=== PATIENT | female | born 1970 | race Caucasian/White ===

== ENCOUNTER → 2022-04-18 11:53 | Outpatient (CLI) | payer OTHER, MEDICAID, SELFPAY ==
--- NOTE | 2022-04-18 | DI.US.S_ITS ---
ULTRASOUND OF LEFT BREAST: 04/18/2022 CLINICAL: Palpable left breast lump. Comparison is made to exams dated: 04/18/2022 mammogram - [facility] and 12/07/2017 mammogram - outside facility. Color flow and real-time ultrasound of the left breast were performed. Castro scale images of the real-time examination were reviewed. There is a 4.1 cm x 2.1 cm x 3.5 cm irregular mass in the left breast at 1 o'clock middle depth 5 cm from the nipple. This irregular mass is hypoechoic with an echogenic boundary. This correlates as palpated, with mammography findings, and area of clinical concern. Color flow imaging demonstrates that there is vascularity present. There also is an oval lymph node with mild eccentric cortical thickening in the left axilla. This oval lymph node is hypoechoic with fatty hilum. IMPRESSION: HIGHLY SUGGESTIVE OF MALIGNANCY The 4.1 cm x 2.1 cm x 3.5 cm irregular mass in the left breast at 1 o'clock middle depth is highly suggestive of malignancy. An ultrasound guided biopsy is recommended. The oval lymph node with eccentric cortical thickening in the left axilla is suspicious of malignancy. An ultrasound guided biopsy is recommended. Findings and recommendations were discussed with the patient by Dr. Lynn during today's examination. This exam was interpreted at Station ID: [id number]. Electronically Signed By: Jose Soto M.D. aty/:04/18/2022 13:52:50 letter sent: Biopsy Required Ultrasound BI-RADS: 5 Highly suggestive of malignancy
--- NOTE | 2022-04-18 | DI.MG.S_ITS ---
BILATERAL DIGITAL DIAGNOSTIC MAMMOGRAM 3D/2D: 04/18/2022 CLINICAL: Palpable left breast lump. Due for routine. Comparison is made to exam dated: 12/07/2017 mammogram - outside facility. The tissue of both breasts is heterogeneously dense. This may lower the sensitivity of mammography. There is a new 2.4 cm x 4.2 cm irregular high density mass with an obscured margin in the left breast at 1 o'clock middle depth. This correlates as palpated and with area of clinical concern. There is architectural distortion associated with the mass. No other significant masses, calcifications, or other findings are seen in either breast. IMPRESSION: INCOMPLETE: NEEDS ADDITIONAL IMAGING EVALUATION The new 2.4 cm x 4.2 cm irregular high density mass in the left breast is indeterminate. An ultrasound is recommended for further evaluation and is scheduled to immediately follow this examination. This exam was interpreted at Station ID: [id number]. NOTE: For mammograms, a report in lay terms will be sent to the patient. Approximately 15% of breast malignancies will not be visualized mammographically. In the management of a palpable breast mass, a negative mammogram must not discourage biopsy of a clinically suspicious lesion. Electronically Signed By: Jose Soto M.D. aty/:04/18/2022 12:33:35 ACR BI-RADS Category 0: Incomplete [id number]
== END ==
PROVIDERS: Referring Provider Physician Assistant; Visit Provider Physician Assistant
DX: N63.21 Unspecified lump in the left breast, upper outer quadrant (principal); R92.8 Other abnormal and inconclusive findings on diagnostic imaging of breast
CPT/HCPCS: 76642; 77066; G0279

== ENCOUNTER → 2024-04-13 15:01 | Outpatient (CLI) | payer OTHER, MEDICAID, SELFPAY ==
--- NOTE | 2024-04-13 15:08 | DI.NM.S_ITS ---
PROCEDURE: NM HIDA WITH CCK PHARMACEUTICAL: 5.1 mCi Tc-99m mebrofenin IV; 2 mcg CCK IV. INDICATIONS: ABD PAIN TECHNIQUE: Following intravenous administration of Tc-99m mebrofenin, sequential anterior abdominal images were obtained. To evaluate the contractile response of the gallbladder in response to Cholecystokinin (CCK), sincalide (0.02 ?g/kg) was administered by slow intravenous infusion approximately 60 minutes after the administration of the radiopharmaceutical. Sequential imaging was continued for 30 minutes after the start of CCK infusion. Gallbladder ejection fraction was calculated. COMPARISON: None. FINDINGS: Biliary scan: There is normal tracer uptake and excretion by the liver. There is normal visualization of the intrahepatic ducts, common bile duct, and gallbladder. There is normal tracer transit into the duodenum. CCK stimulation: There is normal contractile response of the gallbladder to CCK infusion. The calculated gallbladder ejection fraction is 93% ; normal values are above 35%. IMPRESSION: 1. Normal filling of gallbladder. No evidence for acute cholecystitis. 2. Normal contractile response of gallbladder to CCK stimulation. Dictated by: Kenrick Gonzalez M.D. on 04/14/2024 at 8:53 Approved by: Kenrick Gonzalez M.D. on 04/14/2024 at 8:55
== END ==
PROVIDERS: PCP Nurse Practitioner; Referring Provider Surgery; Visit Provider Surgery
DX: R10.9 Unspecified abdominal pain (principal)
CPT/HCPCS: 78227; A9537; J2805

== ENCOUNTER → 2025-05-10 10:54 | Outpatient (CLI) | payer OTHER, SELFPAY ==
--- NOTE | 2025-05-10 11:00 | DI.MRI.S_ITS ---
PROCEDURE: MR KNEE RT WO CON INDICATIONS: RIGHT KNEE PAIN TECHNIQUE: Noncontrast sagittal PD fast spin echo and T2 fast spin echo with fat saturation, sagittal 3-D FLASH with fat saturation; coronal T1 spin echo and PD fast spin echo with fat saturation, and axial PD fast spin echo with fat saturation through the knee. COMPARISON: None. FINDINGS: Image quality: Excellent. Menisci: Markedly abnormal appearance of the medial meniscus with markedly progressed degeneration/maceration of the posterior horn, midbody and into the anterior horn and anterior meniscal root. Posterior meniscocapsular separation. The lateral meniscus is normal in size and signal intensity. Cruciate ligaments: The anterior and posterior cruciate ligaments appear intact. Medial structures: Mild increased T2 weighted signal, soft tissue edema surrounding the medial collateral ligament predominantly proximally may represent grade 1 injury. Mild increased pes anserinus bursal fluid. Otherwise the pes anserinus tendons are normal. The semimembranosus tendon insertion is normal. Lateral structures: Mild increased T2 weighted signal and thickening of the distal popliteus tendon and proximal aspect of the lateral collateral ligament mild injury/strain. The long and short heads of the biceps femoris tendon appear intact. Iliotibial band appears normal. Anterior structures: Increased T2 weighted signal/edema at the attachment of the lateral and to a lesser degree the medial patellar retinacula with edema in the infrapatellar fat pad increased from the prior exam. The quadriceps and patellar tendons appear intact. Patellar alignment is normal. Bones and cartilage: New moderate to severe edema in the medial femoral condyle and medial tibial plateau with markedly progressed severe diffuse cartilaginous thinning and irregularity with near [id number] configuration in the medial compartment Kellgren Da grade 3-4 degenerative changes. No MR evidence of fracture line or dislocation. Joint space: New moderate to large knee joint effusion. IMPRESSION: New maceration/degeneration tears of the medial meniscus As discussed above with associated severe degenerative changes, cartilaginous thinning and subchondral edema in the medial compartment. New moderate to large knee joint effusion. Minor injury/strain of the medial and lateral collateral ligament, distal popliteus tendon. Edema of the attachments of the medial and lateral patellar retinacula. Dictated by: Abimael Philip M.D. on 05/12/2025 at 13:17 Approved by: Abimael Philip M.D. on 05/12/2025 at 13:37
== END ==
LOC: MRI 10:59
PROVIDERS: PCP Nurse Practitioner; Referring Provider Physician Assistant; Visit Provider Physician Assistant
DX: S83.241A Other tear of medial meniscus, current injury, right knee, initial encounter (principal); S83.411A Sprain of medial collateral ligament of right knee, initial encounter; S83.421A Sprain of lateral collateral ligament of right knee, initial encounter; M25.461 Effusion, right knee; M25.561 Pain in right knee; Y93.9 Activity, unspecified
CPT/HCPCS: 73721